=== PATIENT | male | born 1935 | race Caucasian/White ===

== ENCOUNTER → 2016-05-05 | Outpatient (CLI) | payer MEDICARE, BC ==
[~2016-05-05] MED LIST: FISH OIL 1,0001 CAP PO; NORVASC PO; PROZAC PO; ZESTORETIC 20/11 TAB PO; ZOCOR10 MG PO
--- NOTE | ~2016-05-05 | US10 ---
[id number] [facility]. [facility] [address] [place], [place] [address] [id number] O MR#: [id number] Acc #: [id number] NAME: MARLEN ROSALES : 1935 SEX: M STUDY DATE/TIME: 05/05/2016 10:27 UNIT: [facility]US ROOM: STUDY DESCRIPTION: US Aorta Complete Attending Physician: Lanette Avitia M.D. Referring Physician: Lanette Avitia M.D. Ordering Physician: Lanette Avitia M.D. Primary Care Physician: Lanette Avitia M.D. MEDICAL IMAGING REPORT This report is preliminary unless electronic signature is present EXAM Aortic ultrasound. DATE OF EXAM 05/05/2016 COMPARISON Prior ultrasound, the most recent dated 03/31/2013. PROCEDURE Saxena-scale imaging, color Doppler flow imaging and Doppler waveform analysis. HISTORY Followup of abdominal aortic aneurysm. FINDINGS There is tjdt-ik-oxnb color flow in the abdominal aorta. In the mid-abdomen, there is an aneurysmal segment about 3.1 cm in maximal dimension, unchanged since the prior exam. The iliac arteries are about a centimeter bilaterally, unchanged since the prior study. IMPRESSION 1. 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 No convincing interval change since 03/31/2013. 2. Persistent ujuc-as-xunz color flow within the aorta. Dictated by... Sky Laws M.D. THIS IS AN ELECTRONICALLY VERIFIED REPORT Sky Laws M.D. at 05/08/2016 4:32 PM TEV/jt TD: 05/05/2016 19:41 JOB #: [id number] MEDICAL IMAGING REPORT COPY
== END | disposition home or self-care (01) ==
LOC: CGUS 09:36
DX: I71.4 Abdominal aortic aneurysm, without rupture (principal)
CPT/HCPCS: 76770